=== PATIENT | male | born 1950 | race Caucasian/White ===

== ENCOUNTER 2020-03-21 13:00 | Outpatient (RCR) | payer MEDICARE, SELFPAY ==
[2020-03-14 14:00] VITALS: BP 154/81; PULSE 65; RESP 18; TEMP 36.2; BMI 52.4
--- NOTE | 2020-03-14 15:20 | PCM.WC.HP ---
(1) Morbid obesity Status: Chronic Code(s): E66.01 - Morbid (severe) obesity due to excess calories (2) Leg ulcer, left Status: Chronic Qualifiers: Non-pressure ulcer stage: with fat layer exposed Qualified Code(s): L97.922 - Non-pressure chronic ulcer of unspecified part of left lower leg with fat layer exposed Code(s): L97.929 - Non-pressure chronic ulcer of unspecified part of left lower leg with unspecified severity (3) Chronic venous insufficiency Status: Chronic Code(s): I87.2 - Venous insufficiency (chronic) (peripheral) (4) Lipodermatosclerosis Status: Chronic Qualifiers: Laterality: bilateral Qualified Code(s): I83.11 - Varicose veins of right lower extremity with inflammation; I83.12 - Varicose veins of left lower extremity with inflammation Code(s): I83.10 - Varicose veins of unspecified lower extremity with inflammation (5) Venous stasis ulcer Status: Chronic Qualifiers: Venous stasis ulcer site: calf Laterality: left Non-pressure ulcer stage: with fat layer exposed Code(s): I83.009 - Varicose veins of unspecified lower extremity with ulcer of unspecified site; L97.909 - Non-pressure chronic ulcer of unspecified part of unspecified lower leg with unspecified severity (6) Venous hypertension, chronic, with ulcer and inflammation Status: Chronic Qualifiers: Laterality: left Qualified Code(s): I87.332 - Chronic venous hypertension (idiopathic) with ulcer and inflammation of left lower extremity; L97.929 - Non-pressure chronic ulcer of unspecified part of left lower leg with unspecified severity Code(s): I87.339 - Chronic venous hypertension (idiopathic) with ulcer and inflammation of unspecified lower extremity; L97.909 - Non-pressure chronic ulcer of unspecified part of unspecified lower leg with unspecified severity (7) Diabetes mellitus Status: Chronic Qualifiers: Diabetes mellitus type: type 2 Code(s): E11.9 - Type 2 diabetes mellitus without complications (8) Hypertension Status: Chronic Code(s): I10 - Essential (primary) hypertension (9) CHF (congestive heart failure) Status: Chronic Code(s): I50.9 - Heart failure, unspecified (10) Coronary artery disease Status: Chronic Qualifiers: Coronary Disease-Associated Artery/Lesion type: [place] artery [place] vs. transplanted heart: [place] heart Code(s): I25.10 - Atherosclerotic heart disease of [place] coronary artery without angina pectoris (11) Atrial fibrillation Status: Chronic Code(s): I48.91 - Unspecified atrial fibrillation (12) Erectile dysfunction Status: Chronic Code(s): N52.9 - Male erectile dysfunction, unspecified (13) Hyperlipidemia Status: Chronic Code(s): E78.5 - Hyperlipidemia, unspecified (14) RENEE (obstructive sleep apnea) Status: Chronic Code(s): G47.33 - Obstructive sleep apnea (adult) (pediatric) (15) Chronic kidney disease (CKD) Status: Chronic Code(s): N18.9 - Chronic kidney disease, unspecified (16) Leg swelling Status: Chronic Code(s): M79.89 - Other specified soft tissue disorders (17) Leg edema Status: Chronic Code(s): R60.0 - Localized edema (18) Inactivity Status: Chronic Code(s): Z72.3 - Lack of physical exercise History of Present Illness Date of Service: 03/14/20 Chief Complaint: Chronic swelling and edema in the lower extremities with ulceration on the left anterolateral calf History of Wound: This is a 70-year-old male who presents with a history of chronic swelling and edema in his lower extremities. He is known to be diabetic, and morbidly obese. Suffers from hyperpigmentation and lipodermatosclerosis bilaterally in the gaiter areas. He is relatively inactive. He claims to sleep on a flat mattress at night. However, during daytime hours he sits idly throughout the day. He denies a history of thrombophlebitis. He has a clustered superficial ulceration on the anterolateral aspect of the left calf, which he says has been present for approximately 3 weeks. He has recently noted weeping of fluid from his distal left lower extremity as well. His regional project manager has recently increased his dose of Metolazone, a diuretic. He has been treated with an oral course of cephalexin, which has been completed today. He has been using Aquaphor topically, and Samuel wraps applied daily. Past Medical History Past Medical History: Chronic Problems Morbid obesity (Chronic) Leg ulcer, left (Chronic) Chronic venous insufficiency (Chronic) Lipodermatosclerosis (Chronic) Venous stasis ulcer (Chronic) Venous hypertension, chronic, with ulcer and inflammation (Chronic) Diabetes mellitus (Chronic) Hypertension (Chronic) CHF (congestive heart failure) (Chronic) Coronary artery disease (Chronic) Atrial fibrillation (Chronic) Erectile dysfunction (Chronic) Hyperlipidemia (Chronic) RENEE (obstructive sleep apnea) (Chronic) Chronic kidney disease (CKD) (Chronic) Leg swelling (Chronic) Leg edema (Chronic) Inactivity (Chronic) Past Medical History: Patient denies a history of myocardial infarction, cerebrovascular accident, and cancer. He suffers from morbid obesity, diabetes mellitus, hypertension, congestive heart failure, coronary artery disease, atrial fibrillation, chronic obstructive pulmonary disease, atrial fibrillation, erectile dysfunction, hyperlipidemia, chronic kidney disease, and obstructive sleep apnea for which he uses a CPAP device. Surgical History: - - Distal right ring finger amputation Allergies/Adverse Reactions: Allergies celecoxib [From Celebrex] Allergy (Verified 03/14/20 14:48) Hives codeine Allergy (Verified 03/14/20 14:48) Hives erythromycin base Allergy (Verified 03/14/20 14:48) Anaphylaxis indapamide Allergy (Verified 03/14/20 14:48) Shortness of breath rofecoxib [From Vioxx] Allergy (Verified 03/14/20 14:48) Itching - Family History Paternal - - The patient's father at the age of 85 with a history of coronary artery disease. The patient's mother at the age of 87 with a history of bone cancer. Social History: The patient is . He lives with his . He is a retired yard warehouse worker. He denies the use of tobacco products. He consumes alcoholic beverages occasionally. Lives: Spouse/ Significant Other Smoking Status: Never smoker Tobacco Use: Non-smoker Alcohol: Occasional Drugs: None Review of Systems Constitutional: Denies: Chills, Fever, Weight Change Eyes: Denies: Pain, Vision Change HEENT: Denies: Difficulty Hearing, Difficulty Swallowing, Sinus Congestion Cardiovascular: Denies: Chest Pain, Palpitations Respiratory: Denies: Cough, Shortness of Breath Gastrointestinal: Denies: Diarrhea, Nausea, Vomiting Genitourinary: Denies: Dysuria, Hematuria Endocrine: Denies: Heat/ Cold Intolerance, Polydipsia, Polyuria Hematologic/ Lymphatic: Denies: Easy Bruising, Easy Bleeding - Physical Exam Vital Signs Temp Pulse Resp BP 97.2 F L 65 18 154/81 H 03/14/20 14:00 03/14/20 14:00 03/14/20 14:00 03/14/20 14:00 General: Alert, Oriented x3, Cooperative, No apparent distress, Well developed, Well nourished HEENT: Atraumatic, PERRLA, EOMI, Normocephalic Oral: Moist Mucosa, No Gingival or Mucosal Lesions/ Ulcerations Neck: No JVD Lungs: Normal air movement Abdomen: Non-Distended Extremities: No clubbing, No cyanosis, No Calf Tenderness, - - Moderate swelling and edema is noted in the lower extremities bilaterally. Scattered small varicosities are noted bilaterally. Lipodermatosclerosis and hyperpigmentation is noted in the gaiter areas bilaterally. Addt'l Wound Findings: A clustered superficial ulceration is noted on the anterolateral aspect of the left calf. Dimensions are documented elsewhere. There is no significant necrotic or nonviable tissue, and only minimal bioburden. There is no sign of infection or cellulitis. Skin: No rashes Wound Measurements and Assessment WC - Nurse 1 - General Ulcer Measurement Start: 03/14/20 14:00 Freq: Status: Active Protocol: Activity Type Activity Date Activity User E-Sign Co-Sign Detail Recorded Client Recorded Date Recorded By Document 03/14/20 14:00 [id number] 03/14/20 14:08 RB 03/14/20 14:00 Wound Center Nurse 1 [Ulcer Assessment] 1. L read cluster -Combined with other wound No -Current Size (cm) - Length 7.8 -Current Size (cm) - Width 1.8 -Current Size (cm) - Depth 0.1 -Total Square Cm 14.04 -Tunneling No -Undermining/Tunneling No -Circular Undermining No -Exudate Amt Medium -Exudate Type Serosanguineous -Wound Margin Flat & Intact -Granulation Amt Medium (34-66%) -Granulation Quality [place] -Slough/Fibrin Yes -Necrosis Amt Small (1-33%) -Necrotic Tissue Type Adherent Slough -Structure Exposed N/A -Texture (Joya-wound Skin Appearance) Assessed -Moisture (Joya-wound Skin Appearance Assessed ) -Color (Joya-wound Skin Appearance) Hemosiderin Staining -Temperature (Joya-wound Skin No Abnormality Appearance) (Pt Warm) -Tenderness on Palpation (Joya-wound No Skin Appearance) -Ulcer Cleansing Wound Cleanser -Foul Odor after Cleansing No -Anesthetic Used 4% Lidocaine Solution [Edema Assessment] -Lower Limb Edema Present Yes -Right Calf (cm) 48.2 -Right Ankle (cm) 26.2 -Left Calf (cm) 49.5 -Left Ankle (cm) 28.8 - Nurse 3 - General Ulcer D/C NN Start: 03/14/20 14:00 Freq: Status: Active Protocol: Activity Type Activity Date Activity User E-Sign Co-Sign Detail Recorded Client Recorded Date Recorded By Document 03/14/20 14:51 [facility] [id number] 03/14/20 14:52 [facility] 03/14/20 14:51 Wound Care Nurse 3 [Wound Dressing] 1. L read cluster -Ulcer Cleansing Rinsed/ Irrigated with Saline -Foul Odor after Cleansing No -Primary Dressing Applied Other -Other Dressing UNNA BOOT [Compression Applied] Left -Compression Wrap Unna Boot ($) ( single) [Post Procedure Tolerated] -Treatment Response Procedure Tolerated Well Pain Scale: 0-10 Numeric [Pain] -Is Patient Pain Free? Yes - Visit Discharge [Visit Discharge Information] -Discharge Condition Stable -Ambulatory Status Ambulatory -Transportation Private Auto -Accompanied by Musculoskeletal: No Muscle Wasting Neurological: Cranial nerves II-XII grossly intact, Neuro grossly intact Psych/Mental Status: Normal Affect, Appropriate, Alert and oriented to time, place, person, mood and affect Debridement Note Post-Debridement Measurements/Treatment - Nurse 3 - General Ulcer D/C NN Start: 03/14/20 14:00 Freq: Status: Active Protocol: Activity Type Activity Date Activity User E-Sign Co-Sign Detail Recorded Client Recorded Date Recorded By Document 03/14/20 14:51 [facility] [id number] 03/14/20 14:52 [facility] 03/14/20 14:51 Wound Care Nurse 3 1. L read cluster -Ulcer Cleansing Rinsed/ Irrigated with Saline -Foul Odor after Cleansing No -Primary Dressing Applied Other -Other Dressing UNNA BOOT Left -Compression Wrap Unna Boot ($) ( single) Treatment Response Procedure Tolerated Well Pain Scale: 0-10 Numeric Is Patient Pain Free? Yes - Visit Discharge Discharge Condition Stable Ambulatory Status Ambulatory Transportation Private Auto Accompanied by No debridement was completed today Assessment/Plan Active Problems Morbid obesity (Chronic) Leg ulcer, left (Chronic) Chronic venous insufficiency (Chronic) Lipodermatosclerosis (Chronic) Venous stasis ulcer (Chronic) Venous hypertension, chronic, with ulcer and inflammation (Chronic) Diabetes mellitus (Chronic) Hypertension (Chronic) CHF (congestive heart failure) (Chronic) Coronary artery disease (Chronic) Atrial fibrillation (Chronic) Erectile dysfunction (Chronic) Hyperlipidemia (Chronic) RENEE (obstructive sleep apnea) (Chronic) Chronic kidney disease (CKD) (Chronic) Leg swelling (Chronic) Leg edema (Chronic) Inactivity (Chronic) Assessment: This is a 70-year-old morbidly obese diabetic male, who presents with swelling and edema in his lower extremities bilaterally, and a recent ulceration on the anterolateral aspect of the left calf which occurred spontaneously approximately 3 weeks prior to his presentation. It appears as though he suffers from chronic venous disease, chronic venous insufficiency, venous hypertension, etc. Manifestations include the swelling and edema, as well as hyperpigmentation and lipodermatosclerosis in the gaiter areas bilaterally. His morbid obesity, lack of activity, and chronic dependency appear to be contributing factors to the patient's presenting symptoms and manifestations. Plan: A lengthy discussion has been undertaken with the patient, and his at the bedside. A change in habits has been recommended. The patient has been advised to continue sleeping on a flat mattress at night. He has been urged to refrain from long periods of idle sitting. Leg elevation has been encouraged, even during daytime hours. Leg elevation is to be to heart level, or higher. Activity has been encouraged, implementing the calf and foot muscle pumps to augment venous flow. Weight loss has been recommended. We are to implement the use of compression to the lower extremities. On the left, a multilayer Unna boot will be applied, and changed twice weekly. Double layer Tubigrip's will be used on the right lower extremity, and worn daily. Patient has recently undergone laboratory testing at [facility]. We will request results. A stress test and echocardiogram have also been formed, the results of which will be requested. The patient will be scheduled for a noninvasive lower extremity arterial study in the near future. He is to return in 1 week for reassessment. Influenza vaccine was not administered today. The patient is not a smoker. He stands 5 feet 9 inches tall. He weighs 355 pounds. His BMI is 52.4. Weight loss has been recommended, and collaboration with his primary care physician in this regard has been advised.
[2020-03-21 12:56] VITALS: BP 152/75; PULSE 67; RESP 18; TEMP 36.4; BMI 52.4
--- NOTE | 2020-03-21 13:26 | HP.PCM_ITS ---
(1) Morbid obesity Status: Chronic Code(s): E66.01 - Morbid (severe) obesity due to excess calories (2) Leg ulcer, left Status: Chronic Qualifiers: Non-pressure ulcer stage: with fat layer exposed Qualified Code(s): L97.922 - Non-pressure chronic ulcer of unspecified part of left lower leg with fat layer exposed Code(s): L97.929 - Non-pressure chronic ulcer of unspecified part of left lower leg with unspecified severity (3) Chronic venous insufficiency Status: Chronic Code(s): I87.2 - Venous insufficiency (chronic) (peripheral) (4) Lipodermatosclerosis Status: Chronic Qualifiers: Laterality: bilateral Qualified Code(s): I83.11 - Varicose veins of right lower extremity with inflammation; I83.12 - Varicose veins of left lower extremity with inflammation Code(s): I83.10 - Varicose veins of unspecified lower extremity with inflammation (5) Venous stasis ulcer Status: Chronic Qualifiers: Venous stasis ulcer site: calf Laterality: left Non-pressure ulcer stage: with fat layer exposed Code(s): I83.009 - Varicose veins of unspecified lower extremity with ulcer of unspecified site; L97.909 - Non-pressure chronic ulcer of unspecified part of unspecified lower leg with unspecified severity (6) Venous hypertension, chronic, with ulcer and inflammation Status: Chronic Qualifiers: Laterality: left Qualified Code(s): I87.332 - Chronic venous hypertension (idiopathic) with ulcer and inflammation of left lower extremity; L97.929 - Non- pressure chronic ulcer of unspecified part of left lower leg with unspecified severity Code(s): I87.339 - Chronic venous hypertension (idiopathic) with ulcer and inflammation of unspecified lower extremity; L97.909 - Non-pressure chronic ulcer of unspecified part of unspecified lower leg with unspecified severity (7) Diabetes mellitus Status: Chronic Qualifiers: Diabetes mellitus type: type 2 Code(s): E11.9 - Type 2 diabetes mellitus without complications (8) Hypertension Status: Chronic Code(s): I10 - Essential (primary) hypertension (9) CHF (congestive heart failure) Status: Chronic Code(s): I50.9 - Heart failure, unspecified (10) Coronary artery disease Status: Chronic Qualifiers: Coronary Disease-Associated Artery/Lesion type: [place] artery [place] vs. transplanted heart: [place] heart Code(s): I25.10 - Atherosclerotic heart disease of [place] coronary artery without angina pectoris (11) Atrial fibrillation Status: Chronic Code(s): I48.91 - Unspecified atrial fibrillation (12) Erectile dysfunction Status: Chronic Code(s): N52.9 - Male erectile dysfunction, unspecified (13) Hyperlipidemia Status: Chronic Code(s): E78.5 - Hyperlipidemia, unspecified (14) RENEE (obstructive sleep apnea) Status: Chronic Code(s): G47.33 - Obstructive sleep apnea (adult) (pediatric) (15) Chronic kidney disease (CKD) Status: Chronic Code(s): N18.9 - Chronic kidney disease, unspecified (16) Leg swelling Status: Chronic Code(s): M79.89 - Other specified soft tissue disorders (17) Leg edema Status: Chronic Code(s): R60.0 - Localized edema (18) Inactivity Status: Chronic Code(s): Z72.3 - Lack of physical exercise History of Present Illness Date of Service: 03/21/20 Chief Complaint: Chronic swelling and edema in the lower extremities with ulceration on the left anterolateral calf History of Wound: This is a 70-year-old male who presented with a history of ch ronic swelling and edema in his lower extremities. He is known to be diabetic, and morbidly obese. Suffers from hyperpigmentation and lipodermatosclerosis bilaterally in the gaiter areas. He is relatively inactive. He claims to sleep on a flat mattress at night. However, during daytime hours he sits idly throughout the day. He denies a history of thrombophlebitis. He has a clustered superficial ulceration on the anterolateral aspect of the left calf, which he says has been present for approximately 3 weeks. He has recently noted weeping of fluid from his distal left lower extremity as well. 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 He has been treated with an oral course of cephalexin, which has been completed today. He has been using Aquaphor topically, and Samuel wraps applied daily. Past Medical History Past Medical History: Chronic Problems Morbid obesity (Chronic) Leg ulcer, left (Chronic) Chronic venous insufficiency (Chronic) Lipodermatosclerosis (Chronic) Venous stasis ulcer (Chronic) Venous hypertension, chronic, with ulcer and inflammation (Chronic) Diabetes mellitus (Chronic) Hypertension (Chronic) CHF (congestive heart failure) (Chronic) Coronary artery disease (Chronic) Atrial fibrillation (Chronic) Erectile dysfunction (Chronic) Hyperlipidemia (Chronic) RENEE (obstructive sleep apnea) (Chronic) Chronic kidney disease (CKD) (Chronic) Leg swelling (Chronic) Leg edema (Chronic) Inactivity (Chronic) Surgical History: - - Distal right ring finger amputation Allergies/Adverse Reactions: Allergies celecoxib [From Celebrex] Allergy (Verified 03/14/20 14:48) Hives codeine Allergy (Verified 03/14/20 14:48) Hives erythromycin base Allergy (Verified 03/14/20 14:48) Anaphylaxis indapamide Allergy (Verified 03/14/20 14:48) Shortness of breath rofecoxib [From Vioxx] Allergy (Verified 03/14/20 14:48) Itching Home Medications: Ambulatory Orders Medication Instructions Recorded Acetaminophen [Tylenol Extra 1,000 mg PO Q4H PRN PRN 03/14/20 Strength] Albuterol Sulfate [Proventil Hfa] 6.7 gm IH Q4H PRN PRN 03/14/20 Allopurinol [Zyloprim] 100 mg PO DAILY 03/14/20 Aspirin [Aspirin, Baby] 81 mg PO DAILY@0800 03/14/20 Budesonide/Formoterol 160/4.5 2 puff INHALATION DAILY 03/14/20 [Symbicort 160/4.5 Mcg Inhaler (SP)] Bumetanide [Bumex] 2 mg PO BID 03/14/20 Cyanocobalamin/Folic Acid [Vitamin 1 ea PO DAILY 03/14/20 A34-Sdfhw Acid Tablet] Cyclosporine [Restasis] 1 ea OP BID 03/14/20 Fosinopril Sodium 10 mg PO DAILY 03/14/20 Insulin Degludec [Tresiba 48 unit SQ QHS 03/14/20 Flextouch U-100] Insulin NPH Human Isophane 19 unit SQ TID 03/14/20 [Novolin N] Metolazone [Zaroxolyn] 5 mg PO QODAY 03/14/20 Multivit-Min/FA/Lycopen/Lutein 1 ea PO DAILY 03/14/20 [Centrum Silver Tablet] Potassium Chloride 10 meq PO DAILY 03/14/20 Rivaroxaban [Xarelto] 20 mg PO DAILY 03/14/20 Rosuvastatin Calcium [Crestor] 5 mg PO DAILY 03/14/20 Sotalol HCl [Sotalol AF] 80 mg PO BID 03/14/20 Metolazone 5 mg PO QODAY 03/21/20 Potassium Chloride 10 meq PO BID 03/21/20 - Family History Paternal - - The patient's father at the age of 85 with a history of coronary artery disease. The patient's mother at the age of 87 with a history of bone cancer. Lives: Spouse/ Significant Other Smoking Status: Never smoker Tobacco Use: Non-smoker Alcohol: Occasional Drugs: None Review of Systems Constitutional: Denies: Chills, Fever, Weight Change Eyes: Denies: Pain, Vision Change HEENT: Denies: Difficulty Hearing, Difficulty Swallowing, Sinus Congestion Cardiovascular: Denies: Chest Pain, Palpitations Respiratory: Denies: Cough, Shortness of Breath Gastrointestinal: Denies: Diarrhea, Nausea, Vomiting Genitourinary: Denies: Dysuria, Hematuria Endocrine: Denies: Heat/ Cold Intolerance, Polydipsia, Polyuria Hematologic/ Lymphatic: Denies: Easy Bruising, Easy Bleeding - Physical Exam Vital Signs Temp Pulse Resp BP 97.6 F L 67 18 152/75 H 03/21/20 12:56 03/21/20 12:56 03/21/20 12:56 03/21/20 12:56 General: Alert, Oriented x3, Cooperative, No apparent distress, Well developed, Well nourished HEENT: Atraumatic, PERRLA, EOMI, Normocephalic Oral: Moist Mucosa Neck: No JVD Lungs: Normal air movement Abdomen: Non-Distended Extremities: No clubbing, No cyanosis, No edema, No Calf Tenderness, - - Chronic skin changes are noted in the patient's lower extremities bilaterally. These include hyperpigmentation and lipodermatosclerosis in the gaiter areas bilaterally. There is little or no swelling in the lower extremities. Addt'l Wound Findings: The wound in the left lower extremity is now completely healed and epithelialized. Skin: No rashes Wound Measurements and Assessment WC - Nurse 1 - General Ulcer Measurement Start: 03/14/20 14:00 Freq: Status: Active Protocol: Activity Type Activity Date Activity User E-Sign Co-Sign Detail Recorded Client Recorded Date Recorded By Document 03/21/20 12:56 RB [id number] 03/21/20 13:09 RB 03/21/20 12:56 Wound Center Nurse 1 [Ulcer Assessment] 1. L read cluster -Combined with other wound No -Current Size (cm) - Length 0 -Current Size (cm) - Width 0 -Current Size (cm) - Depth 0 -Total Square Cm 0 -Photo Taken Yes -Epithelialization Large 67-100% [Edema Assessment] -Lower Limb Edema Present Yes -Left Calf (cm) 46.8 -Left Ankle (cm) 27.5 Musculoskeletal: No Muscle Wasting Neurological: Cranial nerves II-XII grossly intact, Neuro grossly intact Psych/Mental Status: Normal Affect, Appropriate, Alert and oriented to time, place, person, mood and affect Debridement Note Post-Debridement Measurements/Treatment WC - Nurse 2 - General Ulcer CM Notes Start: 03/14/20 14:00 Freq: Status: Active Protocol: Activity Type Activity Date Activity User E-Sign Co-Sign Detail Recorded Client Recorded Date Recorded By Document 03/14/20 17:29 [address] [id number] 03/14/20 17:31 PL 03/14/20 17:29 Wound Center Nurse 2 1. L read cluster -Procedure Performed No Pain Scale: 0-10 Numeric Is Patient Pain Free? Yes - Nurse 3 - General Ulcer D/C NN Start: 03/14/20 14:00 Freq: Status: Active Protocol: Activity Type Activity Date Activity User E-Sign Co-Sign Detail Recorded Client Recorded Date Recorded By Document 03/14/20 14:51 [facility] [id number] 03/14/20 14:52 [facility] 03/14/20 14:51 Wound Care Nurse 3 1. L read cluster -Ulcer Cleansing Rinsed/ Irrigated with Saline -Foul Odor after Cleansing No -Primary Dressing Applied Other -Other Dressing UNNA BOOT Left -Multi-Layered Wrap Application Unna Boot - Left ($) -Compression Wrap Unna Boot ($) ( single) Treatment Response Procedure Tolerated Well Pain Scale: 0-10 Numeric Is Patient Pain Free? Yes WC - Visit Discharge Discharge Condition Stable Ambulatory Status Ambulatory Transportation Private Auto Accompanied by No debridement was completed today - There are no open wounds or ulcerations. Assessment/Plan Active Problems Morbid obesity (Chronic) Leg ulcer, left (Chronic) Chronic venous insufficiency (Chronic) Lipodermatosclerosis (Chronic) Venous stasis ulcer (Chronic) Venous hypertension, chronic, with ulcer and inflammation (Chronic) Diabetes mellitus (Chronic) Hypertension (Chronic) CHF (congestive heart failure) (Chronic) Coronary artery disease (Chronic) Atrial fibrillation (Chronic) Erectile dysfunction (Chronic) Hyperlipidemia (Chronic) RENEE (obstructive sleep apnea) (Chronic) Chronic kidney disease (CKD) (Chronic) Leg swelling (Chronic) Leg edema (Chronic) Inactivity (Chronic) Assessment: This is a 70-year-old morbidly obese diabetic male, who presented with swelling and edema in his lower extremities bilaterally, and a recent ulceration on the anterolateral aspect of the left calf which occurred spontaneously approximately 3 weeks prior to his presentation. It appears as though he suffers from chronic venous disease, chronic venous insufficiency, venous hypertension, etc. Manifestations include the swelling and edema, as well as hyperpigmentation and lipodermatosclerosis in the gaiter areas bilaterally. His morbid obesity, lack of activity, and chronic dependency appear to be contributing factors to the patient's presenting symptoms and manifestations. Plan: Upon presentation today, the ulceration on the left anterolateral calf is now completely healed and epithelialized. The swelling is markedly reduced. The dermatitic changes are significantly improved as well. The chronic skin changes persist, namely hyper pigmentation and lipodermatosclerosis. The patient is to be discharged. A lengthy discussion has been undertaken with the patient, and his at the bedside. A change in habits has been recommended. The patient has been advised to continue sleeping on a flat mattress at night. He has been urged to refrain from long periods of idle sitting. Leg elevation has been encouraged, even during daytime hours. Leg elevation is to be to heart level, or higher. Activity has been encouraged, implementing the calf and foot muscle pumps to augment venous flow. Weight loss has been recommended. We are to continue compression by means of double layer Tubigrip's bilaterally. The patient is scheduled for a bilateral lower extremity arterial study next week, on March 28, 2020. He has been provided a prescription for knee-high graduated compression stockings of 20 to 30 mmHg compression. He is to wait until after his lower extremity arterial study. If normal, he will be instructed to obtain the graduated compression stockings, and to wear them on a daily basis. If there is found to be significant arterial occlusive disease, we may consider a lesser degree of long-term compression. The patient is to follow-up henceforth on an as-needed basis. Influenza vaccine was not administered today. The patient is not a smoker. He stands 5 feet 9 inches tall. He weighs 355 pounds. His BMI is 52.4. Weight loss has been recommended, and collaboration with his primary care physician in this regard has been advised.
--- NOTE | 2020-05-30 08:10 | WC ---
03/14/20 Left Thompson Initial
== END 2020-03-21 13:31 | disposition home or self-care (01) ==
LOC: WC 13:00
PROVIDERS: PCP Family Medicine; Visit Provider Surgery
DX: I83.222 Varicose veins of left lower extremity with both ulcer of calf and inflammation (principal); L97.222 Non-pressure chronic ulcer of left calf with fat layer exposed; I83.11 Varicose veins of right lower extremity with inflammation; I13.0 Hypertensive heart and chronic kidney disease with heart failure and stage 1 through stage 4 chronic kidney disease, or unspecified chronic kidney disease; N18.9 Chronic kidney disease, unspecified; E11.22 Type 2 diabetes mellitus with diabetic chronic kidney disease; I25.10 Atherosclerotic heart disease of native coronary artery without angina pectoris; I48.20 Chronic atrial fibrillation, unspecified; G47.33 Obstructive sleep apnea (adult) (pediatric); E78.5 Hyperlipidemia, unspecified; E66.01 Morbid (severe) obesity due to excess calories; I50.9 Heart failure, unspecified; Z68.43 Body mass index [BMI] 50.0-59.9, adult
CPT/HCPCS: 29580; 99212; 99213; G0463

== ENCOUNTER 2020-03-28 12:44 | Outpatient (RCR) | payer MEDICARE, SELFPAY ==
--- NOTE | 2020-03-28 12:46 | ART_ITS ---
Reason For Study: Non healing wound Procedure A bilateral lower extremity continuous wave Doppler with analog waveform analysis,segmental pressures,and ankle brachial indexes without exercise. Left Segmental Pressures Left brachial= 136mmHg. Left posterior tibial artery = 172mmHg. Left dorsalis pedis artery = 171mmHg. Left digit = 115 mmHg. The left dorsalis pedis waveforms are triphasic. The left posterior tibial artery waveforms are triphasic. Right Segmental Pressures Right brachial= 140mmHg. Right posterior tibial artery = 180mmHg. Right dorsalis pedis artery = 167mmHg. Right digit = 121 mmHg. The right dorsalis pedis waveforms are triphasic. The right posterior tibial artery waveforms are triphasic. Indices The right ankle brachial index by the dorsalis pedis is 1.19. The right ankle brachial index by the posterior tibial artery is 1.29. The right digital-brachial index is 0.86. The left ankle brachial index by the dorsalis pedis is 1.22. The left ankle brachial index by the posterior tibial artery is 1.23. The left digital-brachial index is 0.82. Interpretation Summary Triphasic Doppler waveforms are noted at ankle level bilaterally. Pulse-volume recording waveform amplitudes appear diminished at digital level bilaterally, but satisfactory at low-thigh, calf, and ankle levels bilaterally. Resting ankle-brachial indices are normal bilaterally. Digital-brachial indices are normal bilaterally. There is no evidence of significant arterial occlusive disease in the lower extremities bilaterally. Ordering Physician: Nikita Sims Referring Physician: Ronald Mckeon Performed By: Hailee Martinez RVT and Student
== END 2020-04-22 23:59 ==
LOC: CVS 12:44
PROVIDERS: PCP Family Medicine; Visit Provider Surgery
DX: L97.922 Non-pressure chronic ulcer of unspecified part of left lower leg with fat layer exposed (principal)
CPT/HCPCS: 93923

== ENCOUNTER 2021-12-19 14:48 | Outpatient (CLI) | payer MEDICARE, SELFPAY ==
[2021-12-19 15:17] VITALS: BP 143/76; PULSE 53; RESP 16; TEMP 37; O2SAT 95; BMI 53.8
[2021-12-19] MEDS: 0.9% Saline Lock 10 ML Syringe IV (15:38)
[2021-12-19] MEDS: BEBTELOVIMAB 175 MG/2 ML VIAL IV (15:38)
[2021-12-19 16:15] VITALS: BP 161/99; PULSE 53; RESP 16; TEMP 37.2; O2SAT 95
[2021-12-19 16:41] VITALS: BP 175/91; PULSE 50; RESP 16; TEMP 36.8; O2SAT 97
== END 2021-12-19 17:02 | disposition home or self-care (01) ==
LOC: MS3OUT 14:48 → MS2 14:49
PROVIDERS: PCP Family Medicine; Referring Provider Nurse Practitioner Adult Health; Visit Provider Nurse Practitioner Adult Health
DX: U07.1 COVID-19 (principal)
CPT/HCPCS: M0222; Q0222; A4216